=== PATIENT | female | born 2000 | race African-American/Black ===

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

== ENCOUNTER 2018-04-07 03:04 | Outpatient (CLI) | payer OTHER | END 2018-04-07 05:00 | disposition home or self-care (01) | LOC: M LDO 03:04 | DX: O47.1 False labor at or after 37 completed weeks of gestation (principal); Z3A.39 39 weeks gestation of pregnancy | CPT/HCPCS: 59025 ==

== ENCOUNTER 2018-04-08 01:28 | Inpatient (IN) | payer OTHER ==
[2018-04-08] MEDS: LACTATED RINGER'S 1000 ML IV (02:08)
[2018-04-08] MEDS ORDERED: LR 1,000 ML IV (02:08)
[2018-04-08 02:53] LABS: BASO % 0.1 % (0.0-1.0); HEMATOCRIT 36.5 % (36.0-47.0); HEMOGLOBIN 11.6 g/dl (12.0-15.5); IMMATURE GRANULOCYTE % 0.5 % (0-3.0); LYMPH # 1.3 10^3/uL (1.5-6.5); LYMPH % 9.6 % (24.0-44.0); MEAN CORPUSCULAR HEMOGLOBIN 22.6 pg (27.0-33.0); MEAN CORPUSCULAR HGB CONC 31.8 g/dl (32.0-36.5); MONO % 7.5 % (0.0-5.0); NEUTROPHILS # 11.1 10^3/uL (1.8-7.7); NEUTROPHILS % 82.3 % (36.0-66.0); PLATELET COUNT, AUTOMATED 257 10^3/uL (150-450); RED BLOOD COUNT 5.14 10^6/uL (4.00-5.40); RED CELL DISTRIBUTION WIDTH 15.2 % (11.5-14.5); WHITE BLOOD COUNT 13.5 10^3/uL (4.0-10.0)
[2018-04-08] MEDS ORDERED: FENTANYL 2MCG/ML ROPIVACAINE 0.2% IN 0.9% NACL 200ML IVBAG As Ordered (03:17)
[2018-04-08] MEDS ORDERED: EPIDURAL COMMENT XX (04:10)
[2018-04-08] MEDS ORDERED: FENTANYL/ROPIVACAINE/NACL BAG 200 ML EPIDURAL (04:10)
[2018-04-08] MEDS ORDERED: REFRIGERATOR IV KEYS XX (04:10)
[2018-04-08] MEDS ORDERED: ePHEDrine SULFATE 25 MG/5 ML(5MG/ML) SYRINGE IV (04:10)
[2018-04-08] MEDS ORDERED: NALOXONE INJ 0.4 MG/1 ML VIAL (J2310) IV (04:10)
[2018-04-08] MEDS ORDERED: EPIDURAL/PCA KEYS XX (04:10)
[2018-04-08] MEDS ORDERED: ONDANSETRON 4MG/2ML VIAL (J2405) IV (04:10)
[2018-04-08] MEDS ORDERED: diphenhydrAMINE INJ 50MG/ML VIAL (J1200) IV (04:10)
[2018-04-08] MEDS ORDERED: LACTATED RINGER'S 1000 ML IV (04:10)
[2018-04-08 04:32] LABS: HBSAG L&D NEGATIVE (NEGATIVE)
[2018-04-08] MEDS ORDERED: OXYTOCIN DRIP 30 UNITS in APPROPRIATE DILUENT 1 EA IV (06:45)
[2018-04-08] MEDS: PRENATAL VITAMINS CHEWABLE TABLET PO (09:00)
[2018-04-08] MEDS: DOCUSATE SODIUM 100 MG CAP PO ×2 (09:00→20:46)
[2018-04-08] MEDS: OXYTOCIN DRIP 30 UNITS in APPROPRIATE DILUENT 1 EA IV (11:34)
[2018-04-08] MEDS ORDERED: METOCLOPRAMIDE INJ 10MG/2ML VIAL (J2765) IV (11:45)
[2018-04-08] MEDS ORDERED: DIBUCAINE 1% OINTMENT 30GM TOP (11:45)
[2018-04-08] MEDS ORDERED: ACETAMINOPHEN TAB 650MG DOSE (2X325MG) PO (11:45)
[2018-04-08] MEDS: RHOGAM 300 MCG (1500 IU) INJ (J2790) IM (15:04)
[2018-04-08] MEDS: MEASLES,MUMPS,RUBELLA VACCINE INJ (MMR-II) (90707) SC (15:04)
[2018-04-09] MEDS: PRENATAL VITAMINS CHEWABLE TABLET PO (09:31)
[2018-04-09] MEDS: DOCUSATE SODIUM 100 MG CAP PO ×2 (09:31→21:51)
[2018-04-09] MEDS: IBUPROFEN 800 MG TAB PO (18:40)
[2018-04-10] MEDS: DOCUSATE SODIUM 100 MG CAP PO (08:56)
[2018-04-10] MEDS: PRENATAL VITAMINS CHEWABLE TABLET PO (08:56)
== END 2018-04-10 13:20 | disposition home or self-care (01) | DRG 775 ==
LOC: M LDO 01:28 → M LDI 01:57 → M OBS 14:18
PROVIDERS: Obstetrics & Gynecology
PROC: 10E0XZZ Delivery of Products of Conception, External Approach (ICD-10-PCS; principal; 2018-04-08)
PROC: 0KQM0ZZ Repair Perineum Muscle, Open Approach (ICD-10-PCS; 2018-04-08)
DX: O66.0 Obstructed labor due to shoulder dystocia (principal); Z37.0 Single live birth; Z3A.39 39 weeks gestation of pregnancy; O70.1 Second degree perineal laceration during delivery

== ENCOUNTER 2019-03-29 19:20 | Emergency (ER) | payer OTHER ==
[~2019-03-29] VITALS: Ht 160 cm; Wt 67.3 kg
[2019-03-29 19:20] VITALS: BP 119/68
[~2019-03-29 19:20] MED LIST: COLA100C5 PO; IBUP-1114 PO; MAPA500T2 PO; PRENTAB9 PO
[2019-03-30] MEDS ORDERED: DIFL200T PO (11:34)
== END 2019-03-29 20:28 | disposition left against medical advice (07) ==
LOC: M ED 19:20
DX: R10.2 Pelvic and perineal pain (principal); Z53.21 Procedure and treatment not carried out due to patient leaving prior to being seen by health care provider

== ENCOUNTER 2019-03-30 08:54 | Emergency (ER) | payer OTHER ==
[~2019-03-30] VITALS: Ht 160 cm; Wt 66.7 kg
[2019-03-30] MEDS ORDERED: DIFL200T PO (11:34)
[2019-03-30 11:51] VITALS: BP 115/64
[2019-03-30 12:27] LABS: CHLAMYDIA DNA AMPLIFICATION NEGATIVE (NEGATIVE); GC DNA AMPLIFICATION NEGATIVE (NEGATIVE)
== END 2019-03-30 11:51 | disposition home or self-care (01) ==
LOC: M ED 08:54
DX: B37.3 Candidiasis of vulva and vagina (principal)

== ENCOUNTER 2019-08-24 15:52 | Emergency (ER) | payer OTHER ==
[~2019-08-24] VITALS: Ht 160 cm; Wt 65.9 kg
[2019-08-24 15:52] VITALS: BP 116/60
[~2019-08-24 15:52] MED LIST changes: +DIFL200T PO
[2019-08-24 17:50] LABS: BASO # 0.1 10^3/uL (0.0-0.2); BASO % 0.7 % (0.0-1.0); EOS # 0.2 10^3/uL (0.0-0.5); EOS % 2.7 % (0.0-3.0); HEMATOCRIT 42.7 % (36.0-47.0); HEMOGLOBIN 12.8 g/dl (12.0-15.5); LYMPH # 2.3 10^3/uL (1.5-5.0); LYMPH % 27.8 % (24.0-44.0); MEAN CORPUSCULAR HEMOGLOBIN 22.1 pg (27.0-33.0); MEAN CORPUSCULAR VOLUME 73.9 fl (80.0-96.0); MONO # 0.8 10^3/uL (0.0-0.8); NEUTROPHILS % 59.4 % (36.0-66.0); PLATELET COUNT, AUTOMATED 340 10^3/uL (150-450); RED BLOOD COUNT 5.78 10^6/uL (4.00-5.40); WHITE BLOOD COUNT 8.4 10^3/uL (4.0-10.0)
[2019-08-24 18:10] LABS: ALBUMIN 3.8 GM/DL (3.2-5.2); ALT/SGPT 35 U/L (12-78); BILIRUBIN,DIRECT < 0.1 MG/DL (0.0-0.2); BILIRUBIN,TOTAL 0.1 MG/DL (0.2-1.0); BLOOD UREA NITROGEN 6 MG/DL (7-18); CALCIUM LEVEL 8.5 MG/DL (8.5-10.1); CARBON DIOXIDE LEVEL 27 MEQ/L (21-32); CHLORIDE LEVEL 107 MEQ/L (98-107); CREATININE FOR GFR 0.83 MG/DL (0.55-1.30); GLOMERULAR FILTRATION RATE > 60.0 (>60); GLUCOSE, FASTING 73 MG/DL (70-100); LIPASE 338 U/L (73-393); POTASSIUM SERUM 3.7 MEQ/L (3.5-5.1); SODIUM LEVEL 140 MEQ/L (136-145); TOTAL PROTEIN 7.2 GM/DL (6.4-8.2)
[2019-08-24] MEDS ORDERED: KETOROLAC TROMETHAMINE 10 MG TAB PO ONE (20:30)
--- NOTE | 2019-08-24 22:28 | REPVR ---
PROCEDURE INFORMATION: Exam: US Pelvis Complete, Transabdominal Exam date and time: 08/24/2019 10:00 PM Age: 19 years old Clinical indication: Pelvic pain; Additional info: Lower abd pain TECHNIQUE: Imaging protocol: Real-time transabdominal pelvic ultrasound with image documentation. Complete exam. COMPARISON: No relevant prior studies available. FINDINGS: Uterus/cervix: The uterus measures 7.8 cm in length by 4.3 cm in AP dimension by 5.7 cm in transverse dimension. Normal appearing endometrium measuring only 4 mm. Right adnexa: The right ovary measures 5 cm in length by 2.6 cm in thickness. There is vascular flow of the right ovary with no evidence of torsion. There are follicular cysts of the right ovary the largest measuring 1.3 cm. Left adnexa: The left ovary measures 4.5 cm in length by 2.6 cm in thickness. There is vascular flow of the left ovary with no evidence of torsion. Free fluid: There is only a small amount of free fluid in the cul-de-sac. Bladder: Normal appearing urinary bladder. IMPRESSION: Normal appearing pelvic ultrasound. Electronically signed by: Delfino Arreola On 08/24/2019 22:28:16 PM
== END 2019-08-24 22:24 | disposition home or self-care (01) ==
LOC: M ED 15:52
DX: R10.30 Lower abdominal pain, unspecified (principal)

== ENCOUNTER 2019-11-23 11:11 | Emergency (ER) | payer OTHER ==
[~2019-11-23] VITALS: Ht 160 cm; Wt 68.2 kg
[2019-11-23 11:11] VITALS: BP 132/58
[2019-11-23] MEDS ORDERED: BACITRACIN OINTMENT 30GM TUBE TOP ONE (11:45)
== END 2019-11-23 11:52 | disposition home or self-care (01) ==
LOC: M ED 11:11
DX: L60.8 Other nail disorders (principal)